=== PATIENT | female | born 1950 | race Caucasian/White ===

== ENCOUNTER → 2016-09-24 | Outpatient (CLI) | payer OTHER ==
[~2016-09-24] MED LIST: ASPI-390 PO; ASPI81TA28 PO; DICY10CA12 PO; DORZ1SOL6 OPB; FLUO20CA36 PO; HYDR-5688 PO; PANT40TA2 PO; PREG1CAP70 PO; SIMV10TA5 PO
--- NOTE | 2016-09-24 15:16 | MAMMOGRAPHY REPORT ---
UNILATERAL RIGHT DIGITAL DIAGNOSTIC MAMMOGRAM TOMOSYNTHESIS WITH CAD AND TARGETED RIGHT ULTRASOUND: 09/24/2016 CLINICAL HISTORY: 66-year-old woman who presented with 2-3 months of right breast pain that she desc ribes as both stopping and all in intensity. It waxes and wanes. It is mostly in the central, late ral and inferior aspect of the breast. She also reports a mild rash of the breast for which she has been treated with a topical powder. No palpable mass or nipple discharge. TECHNIQUE: Right breast tomosynthesis in addition to standard 2D mammography was performed. Current study was also evaluated with a Computer Aided Detection (CAD) system. COMPARISON: Comparison is made to exams dated: 11/15/2015 mammogram, 11/10/2014 mammogram, 11/09/2013 valerie mogram, 11/07/2012 mammogram, 10/25/2010 mammogram, and 10/24/2009 mammogram - [facility]. BREAST COMPOSITION: There are scattered areas of fibroglandular density in the right breast. FINDINGS: There are a few stable punctate benign-appearing microcalcifications in the right breast. No new suspicious mass, architectural distortion or cluster of microcalcifications is seen. Targeted ultrasound was performed in the areas of pain pointed out by the patient (throughout the la teral, retroareolar and inferior aspects of the breast) area incidental note is made of a benign ane choic simple cyst in the 9:00 right breast, 6 cm from the nipple. No other suspicious solid or cyst ic mass is seen. No definite abnormality to explain the patient's pain. IMPRESSION: ACR BI-RADS CATEGORY 2: BENIGN, TARGETED ULTRASOUND ACR BI-RADS CATEGORY 2: BENIGN Stable mammographic appearance of the right breast, without mammographic or targeted sonographic [place] dence of malignancy. No suspicious abnormality is seen throughout the lateral, retroareolar and inf erior right breast to explain the patient's pain. Therefore, clinical follow-up is recommended. Tr eatment options for mastalgia can also include: mineral supplements, evening primrose oil and NSAIDs . These results and recommendations were discussed with the patient at the time of the exam. The mando ent is also due for routine bilateral mammography in November 2016. Approximately 10% of breast cancers are not detected with mammography. A negative mammographic repor t should not delay biopsy if a clinically suggestive mass is present. Syeda Healy M.D. ay/:09/24/2016 12:02:33 Casing Grader: Jillian HARRIS)(Brittnee), [facility] letter sent: Normal 1/2 BI-RADS Code: ACR BI-RADS Category 2: Benign Ultrasound BI-RADS: ACR BI-RADS Category 2: Benign
--- NOTE | 2016-09-25 09:20 | CODING QUERY NO DIAGNOSIS ---
TREATMENT RENDERED WITHOUT A DIAGNOSIS Chuck JANG, To promote full compliance with coding requirements relating to patient care, physician participation is requested in all cases of wire inserter uncertainty. Please assist us with providing a diagnosis/symptom for the test(s) below: A diagnosis/symptom was not documented on your Order. A valid diagnosis/symptom is required to bill all insurances. Please remember that we are unable to code a diagnosis of rule out, probable, possible, questionable, or suspected. Tests that require a diagnosis: * UNILATERAL RT TOMOSYNTHESIS DIAGNOSIS: * DIAGNOSTIC MAMMO RIGHT W/ CAD DIAGNOSIS: * ULTRASOUND BREAST LIMITED DIAGNOSIS: DATE OF SERVICE: 09/24/16 Provider Signature: Date: Thank you Sam Plascencia [facility] Information Management Once completed, please kindly fax back to [phone] For questions please call [phone]
== END | disposition home or self-care (01) ==
LOC: C.MAMM 10:23
PROVIDERS: ATTEND Physician Assistant
DX: N64.4 Mastodynia (principal)

== ENCOUNTER → 2016-11-16 | Outpatient (CLI) | payer OTHER ==
--- NOTE | 2016-11-19 13:13 | MAMMOGRAPHY REPORT ---
BILATERAL DIGITAL SCREENING MAMMOGRAM TOMOSYNTHESIS WITH CAD: 11/16/2016 CLINICAL HISTORY: Routine screening. Patient has no complaints. TECHNIQUE: Breast tomosynthesis in addition to standard 2D mammography was performed. Current study was also evaluated with a Computer Aided Detection (CAD) system. COMPARISON: Comparison is made to exams dated: 09/24/2016 ultrasound, 09/24/2016 mammogram, 11/15/2015 m ammogram, 11/10/2014 mammogram, 11/09/2013 mammogram, and 11/07/2012 mammogram - [facility]. BREAST COMPOSITION: There are scattered areas of fibroglandular density in both breasts. FINDINGS: No suspicious masses, calcifications, or areas of architectural distortion are noted in ei ther breast. There has been no significant interval change compared to prior exams. Scattered bilater al benign-appearing calcifications are not significantly changed. IMPRESSION: ACR BI-RADS CATEGORY 2: BENIGN There is no mammographic evidence of malignancy. A 1 year screening mammogram is recommended. The pa tient will receive written notification of the results. Approximately 10% of breast cancers are not detected with mammography. A negative mammographic report should not delay biopsy if a clinically suggestive mass is present. Amanda Galvan M.D. ah/:11/17/2016 10:08:22 Biostatistics Teacher: Nadege WILEY(Theresa)(M), [facility] letter sent: Normal 1/2 BI-RADS Code: ACR BI-RADS Category 2: Benign
== END | disposition home or self-care (01) ==
LOC: C.MAMM 14:24
PROVIDERS: ATTEND Family Medicine
DX: Z12.31 Encounter for screening mammogram for malignant neoplasm of breast (principal)

== ENCOUNTER 2017-01-28 16:47 | Emergency (ER) | payer OTHER ==
[~2017-01-28] VITALS: Ht 157.5 cm; Wt 109.3 kg
[~2017-01-28 16:47] MED LIST changes: -HYDR-5688 PO; -PANT40TA2 PO; +PRT/40 PO
[2017-01-28 16:54] VITALS: TEMP 36.8; Ht 157.5 cm; Wt 109.3 kg
--- NOTE | 2017-01-28 19:20 | DIAGNOSTIC IMAGING REPORT ---
RIGHT SHOULDER 3 VIEWS HISTORY: right shoulder pain, atraumatic Right COMPARISON: None. FINDINGS: There is no fracture or dislocation. Soft tissues are unremarkable. No radiopaque foreign bodies. The right clavicle is intact. Mild AC joint arthrosis. Small focus of calcification within the distal supraspinatus tendon. IMPRESSION: Mild degenerative changes at the AC joint. No fracture or dislocation within the right shoulder. Supraspinatus calcific tendinitis. Electronically signed by: Coleman Vázquez M.D. 01/28/2017 7:19 PM Dictated Date/Time: 01/28/2017 7:17 PM
--- NOTE | 2017-01-28 19:23 | DIAGNOSTIC IMAGING REPORT ---
CERVICAL SPINE 5 VIEWS HISTORY: right shoulder and neck pain COMPARISON: None. FINDINGS: The cervical spine is visualized from C1 through the superior endplate of T1. There is no fracture. No subluxation. Moderate disc space narrowing at C4-C5 and C5-C6 with small endplate osteophytes. Moderate facet osteoarthritis throughout the majority cervical spine. This results in mild to moderate neural foraminal narrowing seen from C3 through C6 bilaterally. Prevertebral soft tissues and the atlantodens interval are intact. Straightening of the mid cervical spine. IMPRESSION: Moderate degenerative changes at the C4-C5 and C5-C6 levels. No fracture or subluxation. Electronically signed by: Coleman Vázquez M.D. 01/28/2017 7:22 PM Dictated Date/Time: 01/28/2017 7:19 PM
[2017-01-28] MEDS ORDERED: HYDROCODONE/ACETAMOPHEN 5/325MG TAB PO STA (19:30)
[2017-01-28] MEDS ORDERED: NORCO 5/325MG HOME PACK PO ONE (20:15)
--- NOTE | 2017-01-28 20:16 | EMERGENCY ROOM VISIT NOTE ---
ED Visit Note First contact with patient: 17:34 The patient was seen and examined with Flor Brunson PA-C. I agree with the history, physical and findings. Please see the note for disposition and details.
[2017-01-28] MEDS ORDERED: HYDR-5688 PO (20:18)
--- NOTE | 2017-01-28 20:19 | EMERGENCY ROOM VISIT NOTE ---
History First contact with patient: 17:34 Chief Complaint: SHOULDER PAIN Stated Complaint: R SHOULDER PAIN History of Present Illness The patient is a 67 year old female who presents to the Emergency Room with complaints of right shoulder pain. The patient states that she has had right shoulder pain which began yesterday. The pain came on gradually since yesterday morning when she woke up. The pain radiates from her neck down her right shoulder and into the top of her arm. The pain has been intermittent, but today became constant and more severe. She rates her discomfort a 10/10. She has used an ice pack and taken naproxen without relief. The pain is worse when she lifts her arm. She denies any numbness or weakness arm. She denies any chest pain or shortness of breath. She denies any history of neck or shoulder problems. Review of Systems A complete 10 point review of systems was reviewed with the patient with pertinent positives and negatives as per history of present illness. All else were negative. Past Medical/Surgical History Surgical Problems: (1) Hx of cholecystectomy (2) Normal colonoscopy Family History No significant family history Social History Smoking Status: Never Smoker Alcohol Use: none Drug Use: none Marital Status: single Housing Status: lives with family Occupation Status: retired Current/Historical Medications Scheduled Aspirin (Aspirin Ec), 81 MG PO DAILY Prswzdu-Xiionhypupjvj-Oegapzvr (Excedrin Migraine), 2 TAB PO DAILY Dicyclomine Hcl (Dicyclomine Hcl), 10 MG PO DAILY Dorzolamide Hcl-Timolol Maleat (Cosopt Oph), 1 DROPS OPB BID Fluoxetine HCl (Fluoxetine HCl), 20 MG PO QAM Pantoprazole (Pantoprazole Sodium), 40 MG PO DAILY Pregabalin (Lyrica), 300 MG PO BID Simvastatin (Zocor), 1 TAB PO HS Scheduled PRN Hydrocodone/Acetaminophen 5MG/325MG (Bristol 5MG/325MG), 1-2 TABLET PO Q4H PRN for Pain Allergies Coded Allergies: Naproxen (Verified Allergy, Unknown, GI SYMPTOMS, 01/25/16) Sulfa Antibiotics (Verified Allergy, Unknown, RASH, 01/25/16) Physical Exam Vital Signs Date Time Temp Pulse Resp B/P (MAP) Pulse Ox O2 Delivery O2 Flow Rate FiO2 01/28/17 20:56 70 18 128/86 95 01/28/17 20:45 70 18 128/86 95 Room Air 01/28/17 18:35 70 18 148/70 95 Room Air 01/28/17 16:54 36.8 81 18 186/101 96 Room Air Physical Exam VITALS: Vitals are noted on the nurse's note and reviewed by myself. Vital signs stable. GENERAL: This is a 67-year-old female, in no acute distress, nondiaphoretic, well-developed well-nourished. HEART: Regular rate and rhythm without murmurs gallops or rubs. LUNGS: Clear to auscultation bilaterally without wheezes, rales or rhonchi. MUSCULOSKELETAL: No obvious deformities. There is vague tenderness to palpation in the right cervical paraspinous muscles,right trapezius muscle, and right anterior shoulder. Decreased range of motion of the right shoulder secondary to discomfort. NEURO: Patient was alert and oriented to person place and time. Normal sensation to light and sharp touch. Medical Decision & Procedures ER Provider Diagnostic Interpretation: CERVICAL SPINE 5 VIEWS FINDINGS: The cervical spine is visualized from C1 through the superior endplate of T1. There is no fracture. No subluxation. Moderate disc space narrowing at C4-C5 and C5-C6 with small endplate osteophytes. Moderate facet osteoarthritis throughout the majority cervical spine. This results in mild to moderate neural foraminal narrowing seen from C3 through C6 bilaterally. Prevertebral soft tissues and the atlantodens interval are intact. Straightening of the mid cervical spine. IMPRESSION: Moderate degenerative changes at the C4-C5 and C5-C6 levels. No fracture or subluxation. RIGHT SHOULDER 3 VIEWS FINDINGS: There is no fracture or dislocation. Soft tissues are unremarkable. No radiopaque foreign bodies. The right clavicle is intact. Mild AC joint arthrosis. Small focus of calcification within the distal supraspinatus tendon. IMPRESSION: Mild degenerative changes at the AC joint. No fracture or dislocation within the right shoulder. Supraspinatus calcific tendinitis. Laboratory Results Test 01/28/17 18:39 Bedside Troponin I < 0.030 ng/ml (0-0.045) Medications Administered Medications (Trade) Dose Ordered Sig/Jan Route Start Time Stop Time Status Last Admin Dose Admin Acetaminophen/ Hydrocodone Bitart (Bristol 5/325 Tab) 1 tab NOW STAT PO 01/28/17 19:30 8/21/17 19:31 DC 01/28/17 19:41 1 TAB Acetaminophen/ Hydrocodone Bitart (Bristol 5/325mg Home Pack) 1 homepack UD ONCE PO 01/28/17 20:15 01/28/17 20:17 DC 01/28/17 20:46 1 HOMEPACK ECG Indication: back/shoulder pain Rate (beats per minute): 69 Rhythm: normal sinus Findings: no acute ischemic change, no ectopy Change: no significant change Medical Decision Differential diagnosis includes cervical radiculopathy, calcific tendinitis, rotator cuff tendinitis, cardiac disease, referred pain, among others. The patient is a 67-year-old female who presents today complaining of right shoulder pain. X-rays showed calcific tendinitis of the right shoulder. Troponin was negative. EKG showed no acute ischemic changes. Patient was treated with Bristol here with significant relief. She'll be given a prescription of Bristol and will follow-up with her orthopedist. She was placed in a sling for comfort. Conservative measures were discussed. She verbalized understanding of my assessment and treatment plan was discharged home in good condition. The patient was independently evaluated by Dr. Sinclair, ED attending physician, who agreed with my assessment and treatment plan. Medication reconciliation: I attest that I have personally reviewed the patient 's current medication list. Blood Pressure Screening: Patient was found to have a slightly elevated blood pressure due to circumstances. I do not believe that the patient requires hypertension monitoring. [place] Drug Monitoring Program Search Results: patient reviewed within database Impression Primary Impression: Calcific tendinitis of right shoulder Departure Information Dispostion Home / Self-Care Condition GOOD Prescriptions Hydrocodone/Acetaminophen 5MG/325MG (Bristol 5MG/325MG) Tab 1-2 TABLET PO Q4H Y for Pain, #15 TAB For Initial Treatment Prov: Flor Brunson .DONNIE 01/28/17 Referrals Frantz Cuellar M.D. (PCP) Grey Robison M.D. Patient Instructions My [facility] Additional Instructions You have been treated in the Emergency Department for Shoulder Pain. You have received pain medicine in the emergency department which impairs your ability to operate a vehicle. It is illegal for you to drive after receiving these medicines. You have been prescribed Bristol to be used for pain control. This is a narcotic medication. You cannot drive or consume alcohol while on this medicine. This medicine should only be used for pain that cannot be controlled with over-the- counter pain medicines. For pain control, you can use the following lnzi-nqc-fcmpzqc medicines (if >12 yo): - Regular strength (325mg/tab) Tylenol (acetaminophen) 2 tabs every 4-6 hours as needed. Do not exceed 12 tablets in a 24 hour period. Avoid taking more than 4 grams (4000 mg) of Tylenol per day. This includes any other sources of acetaminophen you may take on a regular basis. - Regular strength (200 mg/tab) Advil (ibuprofen) 1-2 tabs every 4-6 hours as needed. Do not exceed a dose of 3200 mg per day. If this is a recent injury (<24 hrs), ice can be applied to the area of pain for the first 3 days to help decrease pain and inflammation. Follow-up with Dr. Robison. Call for appointment. Wear the sling as needed for pain. Return to the Emergency Department if your current symptoms worsen despite treatment course outlined above, or if you develop any of the following symptoms : intractable pain despite aforementioned treatment course or new onset of numbness or tingling of the arm.
[2017-01-28 20:56] VITALS: BP 128/86; PULSE 70; O2SAT 95
== END 2017-01-28 20:57 | disposition home or self-care (01) ==
LOC: C.EDB 16:48 → C.EDC 20:57
DX: M75.31 Calcific tendinitis of right shoulder (principal); Z90.49 Acquired absence of other specified parts of digestive tract; Z98.890 Other specified postprocedural states; Z79.82 Long term (current) use of aspirin; Z79.899 Other long term (current) drug therapy; Z88.2 Allergy status to sulfonamides; Z88.8 Allergy status to other drugs, medicaments and biological substances

== ENCOUNTER 2017-07-12 08:16 | Inpatient (IN) | payer OTHER ==
[2017-06-14 09:27] VITALS: Ht 157.5 cm; Wt 107.6 kg
--- NOTE | 2017-06-14 09:57 | PAT Medication Instructions ---
Service Date Jun 14, 2017. Current Home Medication List Acetaminophen (Tylenol), 1,000 MG PO Q12 Aspirin (Aspirin Ec), 81 MG PO QAM Nbljigr-Qgbfbdyupkdws-Hsqlmqyp (Excedrin Migraine), 2 TAB PO DAILY Cyclobenzaprine Hcl (Flexeril), 10 MG PO TID PRN for Muscle Spasms Dicyclomine Hcl (Dicyclomine Hcl), 10 MG PO BID Dorzolamide Hcl-Timolol Maleat (Cosopt Oph), 1 DROPS OPB BID Fluoxetine HCl (Fluoxetine HCl), 40 MG PO QAM Fluticasone Propionate (Nasal) (Flonase Allergy Relief), 1 SPRAY BRIANA DAILY PRN for PRN Ondansetron Hcl (Zofran), 8 MG PO UD PRN for Nausea Pantoprazole (Pantoprazole Sodium), 40 MG PO QAM Simethicone (Simethicone), 1 CAP PO BID PRN for GAS Simvastatin (Zocor), 1 TAB PO HS Medication Instructions For Your Scheduled Surgery - Hold the following medications the morning of surgery: Simethicone (Simethicone), 1 CAP PO BID PRN for GAS Dicyclomine Hcl (Dicyclomine Hcl), 10 MG PO BID Cyclobenzaprine Hcl (Flexeril), 10 MG PO TID PRN for Muscle Spasms - Take the following medications the morning of surgery with a sip of water OTHERWISE NOTHING TO EAT OR DRINK AFTER MIDNIGHT: Aspirin (Aspirin Ec), 81 MG PO QAM Pantoprazole (Pantoprazole Sodium), 40 MG PO QAM Fluticasone Propionate (Nasal) (Flonase Allergy Relief), 1 SPRAY BRIANA DAILY PRN for PRN Ondansetron Hcl (Zofran), 8 MG PO UD PRN for Nausea Fluoxetine HCl (Fluoxetine HCl), 40 MG PO QAM Acetaminophen (Tylenol), 1,000 MG PO Q12 (may take if needed up to 4 hours prior to surgery) Dorzolamide Hcl-Timolol Maleat (Cosopt Oph), 1 DROPS OPB BID Gabapentin - Take the following medications as scheduled the night before surgery: Simvastatin (Zocor), 1 TAB PO HS Simethicone (Simethicone), 1 CAP PO BID PRN for GAS Fluticasone Propionate (Nasal) (Flonase Allergy Relief), 1 SPRAY BRIANA DAILY PRN for PRN Ondansetron Hcl (Zofran), 8 MG PO UD PRN for Nausea Acetaminophen (Tylenol), 1,000 MG PO Q12 Dicyclomine Hcl (Dicyclomine Hcl), 10 MG PO BID Dorzolamide Hcl-Timolol Maleat (Cosopt Oph), 1 DROPS OPB BID Cyclobenzaprine Hcl (Flexeril), 10 MG PO TID PRN for Muscle Spasms Gabapentin Propanolol If you have any questions please call us at [phone] or [phone] or [phone]
[2017-06-14 10:27] LABS: BASO % 0.5 %; BASO ABS # 0.03 K/uL (0-0.2); EOS % 1.1 %; EOS ABS # 0.07 K/uL (0-0.5); HEMATOCRIT 41.5 % (37-47); HEMOGLOBIN 13.7 g/dL (12.0-16.0); IG# 0.02 K/uL (0.00-0.02); LYMPH ABS # 2.11 K/uL (1.2-3.4); MEAN CELL VOLUME 89.6 fL (80-100); MEAN CORPUSCULAR HEMOGLOBIN 29.6 pg (25-34); MEAN PLATELET VOLUME 10.7 fL (7.4-10.4); MONO % 10.5 %; MONO ABS # 0.69 K/uL (0.11-0.59); NEUT % 55.6 %; NEUT ABS # 3.67 K/uL (1.4-6.5); PLATELET COUNT 262 K/uL (130-400); RED CELL DISTRIBUTION WIDTH CV 13.5 % (11.5-14.5); RED CELL DISTRIBUTION WIDTH SD 44.5 fL (36.4-46.3); WHITE BLOOD COUNT 6.59 K/uL (4.8-10.8)
[2017-06-14 10:37] LABS: PTT PATIENT 27.7 SECONDS (21.0-31.0)
--- NOTE | 2017-06-14 10:48 | DIAGNOSTIC IMAGING REPORT ---
CHEST 2 VIEWS ROUTINE CLINICAL HISTORY: 67 years-old Female presenting with preoperative assessment. TECHNIQUE: PA and lateral views of the chest were obtained. COMPARISON: 06/17/2015. FINDINGS: Cardiomediastinal silhouette normal. Lungs and pleural spaces clear. Degenerative changes of the thoracic spine. Cholecystectomy clips noted. IMPRESSION: 1. No acute cardiopulmonary disease. Electronically signed by: Ryley Starks M.D. 06/14/2017 10:47 AM Dictated Date/Time: 06/14/2017 10:46 AM
[2017-06-14 12:21] LABS: CALCIUM 8.9 mg/dl (8.5-10.1); CREATININE 0.81 mg/dl (0.60-1.20); POTASSIUM 4.1 mmol/L (3.5-5.1)
--- NOTE | 2017-07-06 10:52 | HISTORY & PHYSICAL EXAMINATION ---
DATE OF ADMISSION: 07/12/2017 CHIEF COMPLAINT: Bilateral knee pain and discomfort, right side greater than left. HISTORY OF PRESENT ILLNESS: This is a 67-year-old female who presents for surgical treatment of her right knee. He has got a long history of knee pain and discomfort, treated by my partner, Dr. Ragland. She had been through extensive treatment including oral medicines, steroid shots, and viscosupplementation. The viscosupplementation did not help at all. The steroid shots do help temporarily, but very fleeting. Pain is mostly in the lateral side of her knee. It is increased with weightbearing. She does have some back and sciatica type pain as well. She would like to proceed with knee replacement surgery. PAST MEDICAL HISTORY: Significant for, 1. Obesity with a BMI of 43.4. 2. Anxiety/depression. 3. Fibromyalgia. 4. Migraine headaches. 5. Arthritis. 6. Gastroesophageal reflux disease. 7. Hiatal hernia. PAST SURGICAL HISTORY: Include: 1. Cholecystectomy. 2. Hysterectomy. ALLERGIES: 1. NAPROSYN, WHICH CAUSES GI DISCOMFORT. 2. SULFA. CURRENT MEDICINES: 1. Celebrex 200. 2. Ranitidine 300 mg at bedtime. 3. Zocor 40 mg at bedtime. 4. Cyclobenzaprine 10 mg at bedtime. 5. Simethicone 80 mg 1-2 tablets by mouth 4 times daily as needed for gas. 6. Lyrica 150 mg twice a day. 7. Dicyclomine 10 mg before breakfast and dinner. 8. Cosopt eyedrops 1 drop in each eye twice a day. 9. Fluoxetine 20 mg twice a day. 10. Pantoprazole 40 mg twice a day. 11. Ondansetron twice a day. 12. Oxygen by nasal cannula. 13. Fluticasone nasal spray. 14. Excedrin. 15. Aspirin 81 mg a day. 16. Tylenol. SOCIAL HISTORY: A 67-year-old white female patient from [place]. She is . She does not drink. FAMILY HISTORY: Significant for lung cancer. REVIEW OF SYSTEMS: Negative for diabetes. Denies any chest pain. No history of DVT or PE. No known bleeding problems. PHYSICAL EXAMINATION: GENERAL: Reveals a pleasant middle-aged female. She looks to be in reasonably good health. HEENT: Benign. NECK: Supple with no lymphadenopathy. LUNGS: Clear to auscultation. HEART: Has a regular rate and rhythm. ABDOMEN: Soft, nontender, and nondistended. EXTREMITIES: Grossly neurovascularly intact except as follows. Examination of both knees reveals that the patient walks with a slight bit of a limp. Examination of the right knee reveals a valgus alignment. She has got a moderate soft tissue envelope. Small knee effusion. Range of motion is 0-125. No instability. No pain with hip motion. X-RAYS: X-rays of the right knee reveal advanced lateral compartment DJD. She got near complete loss of her lateral joint space. She does have cystic changes of the lateral femoral condyle consistent with some AVN. She has got some moderate medial compartment arthritis. Hip x-rays look pretty normal. ASSESSMENT: A 67-year-old female with multiple underlying medical issues including fibromyalgia and obesity with bilateral knee pain and discomfort, right side greater than left with failing conservative treatment. She has been through extensive conservative care and would like to really have her right knee replaced. PLAN: We talked about treatment options. We are going to proceed with right knee replacement. The risks and benefits of the right knee replacement were explained to the patient, including but not limited to DVT, PE, , infection, neurological injury, vascular injury, bleeding problem, pain, limited range of motion, stiffness, failure to relieve symptoms, incomplete relief of symptoms, need for further surgery in the future, fracture, leg length inequality, nerve palsy, persistent pain, etc. The patient understands and desire to proceed. Informed consent was obtained. I did caution her that with her fibromyalgia, certainly the results of knee replacement surgery are less predictable as far as how much it is going to help. She is completely understanding of this and would like to proceed. As far as discharge plans, she is planning to be discharged to home using [facility]. We will likely use some Toradol postoperatively to help her pain control. We will switch her then to Celebrex. She is planning to be discharged home using [facility] home health [facility].
[2017-07-12] VITALS (8 sets, daily range): BP systolic 125–165; BP diastolic 70–94; PULSE 71–79; TEMP 36.3–36.9; O2SAT 92–97
[~2017-07-12] VITALS: Ht 157.5 cm; Wt 107.6 kg
[~2017-07-12 08:16] MED LIST changes: +ACET-1256 PO; +ACETAMINOPHEN 500 MG TAB PO SCH; -ASPI-390 PO; +BUPIVACAINE 0.25% 30 ML VIAL ONE; +BUPIVACAINE 0.5 % 5 MG/1 ML PF 10ML VIAL ONE; +BUPIVACAINE LIPOSOME 266 MG, BUPIVACAINE/EPINEPHRINE INJ 50 ML, SODIUM CHLORIDE 0.9% PF... INFIL SCH; +CEFAZOLIN 2000MG IV PUSH 10 ML IV SCH; +CYCL10TA6 PO; +FAMOTIDINE 20 MG TAB PO SCH; +FLUT0.15 NAE; +GABA1CAP PO; +GABAPENTIN 300 MG CAP PO SCH; +LACTATED RINGER'S 1000ML 1,000 ML IV SCH; +LACTATED RINGER'S 1000ML 500 ML IV SCH; +MAGN400C2 PO; +METOCLOPRAMIDE HCL 10 MG TAB PO SCH; +ONDA8TAB6 PO; +PANT40TA2 PO; -PREG1CAP70 PO; +PROP80CA PO; -PRT/40 PO; +RIBO1TAB4 PO; +SCOPOLAMINE 1.5 MG TDSY TD SCH; +SIME1CAP28 PO; +TRANEXAMIC ACID INJ 1,000 MG in SYRINGE 0 ML IV SCH
--- NOTE | 2017-07-12 08:50 | History & Physical Bridge Note ---
H&P Re-Evaluation Bridge Note: I have examined the patient, reviewed the History & Physical and in the interval since the performance of the History & Physical I have noted the following changes of clinical significance: No changes noted
[2017-07-12] MEDS ORDERED: PROPOFOL IV EMULSION 10 MG/ML 20 ML VIAL IV ONE (09:44)
[2017-07-12] MEDS ORDERED: LIDOCAINE HCL 2% 2 ML VIAL (20MG/ML) ONE (09:48)
[2017-07-12] MEDS ORDERED: MIDAZOLAM HCL 1 MG/ML 2ML VIAL ONE (09:48)
[2017-07-12] MEDS ORDERED: FENTANYL CITRATE INJ 50 MCG/1 ML 2 ML VIAL ONE (09:49)
[2017-07-12] MEDS ORDERED: SODIUM CHLORIDE 0.9% PF 50 ML VIAL ONE (11:09)
[2017-07-12] MEDS ORDERED: BUPIVACAINE/EPINEPHRINE 0.25% 1:200,000 30 ML VIAL ONE (11:09)
[2017-07-12] MEDS ORDERED: BACITRACIN 50000 UNIT VIAL ONE (11:10)
[2017-07-12] MEDS ORDERED: BUPIVACAINE LIPOSOME 1/3% 266 MG/20 ML VIAL INFIL ONE (11:10)
[2017-07-12] MEDS ORDERED: ONDANSETRON INJ 2 MG/ML 2 ML VIAL ONE (11:39)
[2017-07-12] MEDS ORDERED: DEXAMETHASONE SOD INJ 4 MG/ML VIAL ONE (11:39)
--- NOTE | 2017-07-12 13:03 | [facility] Post Operative Brief Note ---
Immediate Operative Summary Operative Date Jul 12, 2017. Pre-Operative Diagnosis Right Knee Degenerative Joint Disease Post-Operative Diagnosis Same as preop Procedure(s) Performed Right Total Knee Arthroplasty Surgeon Dr. Robison Cylinder Checker Surgeon(s) Almas Bolden PA-C Estimated Blood Loss 50 ml Findings Consistent with Post-Op Diagnosis Fluids (cc crystalloids) 1400 cc Specimens A. Right Knee Bone and Tissue Drains None Anesthesia Type MAC Spinal Regional Complication(s) none Disposition Accompanied Pt To Recover: no Disposition: Recovery Room / PACU
[2017-07-12] MEDS ORDERED: BISACODYL 10 MG SUPP PR PRN (13:15)
[2017-07-12] MEDS ORDERED: METOCLOPRAMIDE HCL INJ 5 MG/ML 2 ML VIAL IV PRN (13:15)
[2017-07-12] MEDS ORDERED: CEFAZOLIN IV 2,000 MG in DEXTROSE 5% 50ML 50 ML IV SCH (13:15)
[2017-07-12] MEDS ORDERED: CYCLOBENZAPRINE HCL 10 MG TAB PO PRN (13:15)
[2017-07-12] MEDS ORDERED: FLUTICASONE PROPIONATE NA SPR 16 GM BTL NAE PRN (13:15)
[2017-07-12] MEDS ORDERED: ZOLPIDEM TARTRATE 5 MG TAB PO PRN (13:15)
[2017-07-12] MEDS ORDERED: ALUMINUM/MAGNESIUM/SIMETH (MAALOX MAX) 30 ML UDC PO PRN (13:15)
[2017-07-12] MEDS ORDERED: SIMETHICONE 80 MG CHEW PO PRN (13:15)
[2017-07-12] MEDS ORDERED: HYDROmorphone INJ 0.5 MG/0.5 ML SYR IV PRN (13:15)
[2017-07-12] MEDS ORDERED: ONDANSETRON 8 MG TAB PO PRN (13:15)
[2017-07-12] MEDS ORDERED: MAGNESIUM HYDROXIDE SUSP 30 ML UDC PO PRN (13:15)
[2017-07-12] MEDS ORDERED: ONDANSETRON INJ 2 MG/ML 2 ML VIAL IV PRN (13:15)
--- NOTE | 2017-07-12 13:32 | Anesthesiology Progress Note ---
Anesthesia Post Op Note Date & Time Jul 12, 2017 at 13:32 Vital Signs Pain Intensity: 0 Vital Signs Past 12 Hours Date Time Temp Pulse Resp B/P (MAP) Pulse Ox O2 Delivery O2 Flow Rate FiO2 07/12/17 13:25 67 19 141/64 97 Nasal Cannula 2 07/12/17 13:15 69 14 140/71 100 Oxymask 10 07/12/17 13:09 37.1 73 20 154/82 100 Oxymask 10 07/12/17 08:48 36.9 79 20 165/88 96 Room Air Notes Mental Status: alert / awake / arousable, participated in evaluation Pt Amnestic to Procedure: Yes Nausea / Vomiting: adequately controlled Pain: adequately controlled Airway Patency, RR, SpO2: stable & adequate BP & HR: stable & adequate Hydration State: stable & adequate Neuraxial Anesthesia: was administered, sensory block is resolving Anesthetic Complications: no major complications apparent
--- NOTE | 2017-07-12 13:37 | DIAGNOSTIC IMAGING REPORT ---
RIGHT KNEE 2 VIEWS History: Right total knee arthroplasty. Degenerative arthritis. Postop. FINDINGS: The patient is status post a right total knee arthroplasty. The hardware is intact. No fracture or dislocation. Skin warren are in place. IMPRESSION: Right total knee arthroplasty. No evidence for hardware complication. Electronically signed by: Coleman Vázquez M.D. 07/12/2017 1:36 PM Dictated Date/Time: 07/12/2017 1:35 PM
[2017-07-12] MEDS ORDERED: EpHEDrine SULFATE INJ 50 MG/ML AMP IV PRN (13:45)
[2017-07-12] MEDS ORDERED: ATROPINE SULFATE 0.1 MG/ML 5ML SYR IV PRN (13:45)
--- NOTE | 2017-07-12 14:09 | OPERATIVE REPORT ---
DATE OF OPERATION: 07/12/2017 SURGEON: Grey Robison MD RICE DRIER: SUHAIL Mcgee PREOPERATIVE DIAGNOSIS: Right knee degenerative joint disease. POSTOPERATIVE DIAGNOSIS: Same. PROCEDURE PERFORMED: Cemented right posterior stabilized total knee arthroplasty. COMPLICATIONS: None. ESTIMATED BLOOD LOSS: 50 mL FLUID REPLACEMENT: 1400 mL crystalloid fluid replacement. TOURNIQUET TIME: 54 minutes at a combination of 300 and 350 mmHg. ANESTHESIA: Spinal with adductor canal block. DRAINS: None. SPECIMENS: Right knee sent for pathology. OPERATIVE INDICATIONS: The patient is a 67-year-old female who has had a fairly long history of bilateral knee pain and discomfort, followed by my partner Dr. Ragland for quite some time. This became less responsive to conservative care. She elected to proceed with total knee arthroplasty. OPERATIVE FINDINGS: Operative findings revealed some ojtpbial-jv-bjxiht knee DJD. She did have grade 4 changes of the lateral femoral condyle and lateral tibial plateau. She had fairly diffuse grade 3 changes elsewhere. Moderate size joint effusion. She had a valgus alignment to her knee. OPERATIVE IMPLANTS: Operative implants consisted of: 1. Biomet Vanguard size 62.5 right posterior stabilized femoral component. 2. Biomet size 63 tibial tray. 3. A 10-mm posterior stabilized polyethylene insert. 4. A 28 x 8 all poly patella. OPERATIVE PROCEDURE: The patient taken to the operating room, identified and placed on the operating table in supine position. All contact areas were appropriately padded. IV antibiotics were provided by anesthesia team. A spinal anesthetic and adductor canal block had been provided in the holding area. Alfaro catheter was placed in sterile fashion. The right lower extremity was then prepped and draped in usual sterile fashion. The right leg was elevated and exsanguinated with an Esmarch and tourniquet was placed at 300 mmHg. An anterior approach to the right knee was then performed through a longitudinal incision centered over the patella. Sharp dissection was carried out through the subcutaneous tissues down to the extensor mechanism. A medial parapatellar arthrotomy incision was made. Some subperiosteal dissection was carried out medially. The fat pad was resected from beneath the patellar tendon. The lateral patellofemoral ligament was released. The patella was everted and knee was flexed. The osteophytes were taken off the distal femur. The ACL and PCL were then released from the distal femur and the tibia subluxated anteriorly. The external tibial alignment jig was then placed in the anterior face of the tibia and adjusted 14 mm medially. Proximal tibial cut was made to remove about 2-3 mm of bone from the medial side. The tibia was then sized to a size 63. Attention was then drawn to the femur. The distal femur was entered with a sharp drill. Intramedullary canal was suctioned. A right 5-degree valgus cutting guide was placed. Distal femoral cutting block was pinned in place. Distal femoral cut was made to take an additional 3 mm of bone off the distal femur. The knee was then flexed. The femur was then sized to a size 62.5. The AP cutting block was pinned parallel to the epicondylar axis, which was 3 degrees of external rotation. The anterior cut, anterior chamfer, posterior cut, posterior chamfer cuts were made. Box cutting guide was placed and adjusted slightly lateral and the box cut was made. The knee was flexed. The remnants of the medial and lateral menisci were excised. The osteophytes were taken off the posterior aspect of the femur. At this point, the patient was seen to be having a little bit of venous tourniquet effect, so we did increase the tourniquet to 350 mmHg. The wound was irrigated. The trial femoral component was placed. Tibial tray was pinned in maximum external rotation and drill and stem punch were used to create defect in proximal tibia for the tibial tray. We then trialed the knee and the 10-mm insert fit most appropriately. Attention was then drawn to the patella. The patella was cleaned of all soft tissues. Patella was quite thin and measured about 17 mm in thickness and it was cut down to 12. It was sized to a size 28 patella. Lug holes were drilled for the 28 patella. The lateral osteophyte was removed. Patella button was placed. Knee was taken through range of motion and the patella tracked nicely with no thumbs test. Attention was then drawn toward placement of the permanent components. All trial components were removed. A bone plug was placed in the distal femur to limit blood loss. A double batch of Palacos G cement was mixed. A right size 62.5 posterior stabilized femoral component, size 63 tibial tray, a 10-mm posterior stabilized polyethylene insert, and 28 x 8 all poly patella were then cemented in place. Knee was brought out into full extension until cement hardened. A final cement check was then performed. The pericapsular tissues were injected with a total of 100 mL of a combination of 20 mL of Exparel, 30 mL of normal saline, 50 mL of 0.25% Marcaine with epinephrine. The patient did receive 1 gram of tranexamic acid. The tourniquet was then let down for the final tourniquet time of 54 minutes. Hemostasis was assured with use of electrocautery. The wound was once again irrigated. The extensor mechanism was then closed with a combination of #1 PDS suture and then #1 Vicryl suture in a [id number] fashion. Extensor mechanism was checked and found to be intact. The subcutaneous tissues were then closed with 2-0 Dexon suture in a buried interrupted fashion. Skin was closed skin warren. Leg was then cleaned and dried and a sterile dressing of Xeroform, 4 x 4's, sterile cast padding and Merrill bandage were applied. The patient was then transferred to the recovery room in a stable condition. The patient tolerated the procedure well without any complications. All needle and sponge counts were correct at the end of the operation. I attest to the content of the Intraoperative Record and any orders documented therein. Any exception s are noted below.
[2017-07-12] MEDS: TRAMADOL HCL 50 MG TAB PO PRN (14:43)
[2017-07-12] MEDS: D5W AND 1/2NSS + 20MEQ KCL 1,000 ML IV SCH ×2 (15:13→23:06)
[2017-07-12] MEDS: KETOROLAC TROMETHAMINE 30 MG/ML VIAL IV. SCH ×2 (15:13→19:52)
[2017-07-12] MEDS: CHECK SCOPOLAMINE PATCH PLACEMENT SCH ×2 (15:35→23:58)
--- NOTE | 2017-07-12 16:13 | PROGRESS NOTE ---
DATE: 07/12/2017 SUBJECTIVE: A 67-year-old female postop from a right knee replacement. She is doing well. She rates her pain at 3-4 at worst. No chest pain or shortness of breath. Not feeling dizzy or lightheaded. OBJECTIVE: VITAL SIGNS: Temperature 36.6. Vital signs stable. Some mild hypertension. GENERAL: Physical examination reveals a pleasant elderly female. She is sitting up in bed and looks completely comfortable. LUNGS: Clear to auscultation. HEART: Has a regular rate and rhythm. ABDOMEN: Soft, nontender, and nondistended. EXTREMITIES: Grossly neurovascularly intact except as follows. Examination of the right lower extremity reveals the leg to be well aligned. Dressing is clean, dry and intact. She can dorsiflex and plantarflex her foot appropriately. She is neurologically intact. X-RAYS: X-rays of the right knee from recovery room were reviewed. It shows a right cemented posterior right total knee arthroplasty. Components looked to be in good position. No signs of problems. ASSESSMENT: A 67-year-old female postop from a right knee replacement, doing pretty well. Pain is controlled. She is neurologically intact. PLAN: 1. DVT prophylaxis including thigh-high TEDs, SCDs, and aspirin twice a day. 2. PT/OT. Weightbear as tolerated. Right total knee protocol. 3. Pain control. Doing pretty well with current pain regimen. 4. IV antibiotics x24 hours. 5. Disposition: She is going to be discharged to home likely with some home health once adequately recovered.
[2017-07-12] MEDS: GABAPENTIN 100 MG CAP PO SCH ×2 (16:32→21:17)
[2017-07-12] MEDS: ACETAMINOPHEN 500 MG TAB PO SCH (16:32)
[2017-07-12] MEDS: FERROUS GLUCONATE 324 MG TAB PO SCH (18:05)
[2017-07-12] MEDS ORDERED: TRANEXAMIC ACID INJ 1,000 MG in SODIUM CHLORIDE 0.9% 100ML 100 ML IV SCH (21:00)
[2017-07-12] MEDS ORDERED: MAGNESIUM OXIDE 400 MG TAB PO SCH (21:00)
[2017-07-12] MEDS: DORZOLAMIDE/TIMOLOL 22.3/6.8MG/ML 10 ML BTL OPB SCH (21:13)
[2017-07-12] MEDS: CEFAZOLIN IV 2,000 MG in SYRINGE 5 ML IV SCH (21:13)
[2017-07-12] MEDS: SENNA 8.6 MG TAB PO SCH (21:14)
[2017-07-12] MEDS: DICYCLOMINE HCL 10 MG CAP PO SCH (21:15)
[2017-07-12] MEDS: PROPRANOLOL HCL 80 MG LA CAP PO SCH (21:15)
[2017-07-12] MEDS: SIMVASTATIN 10 MG TAB PO SCH (21:16)
[2017-07-12] MEDS: ASPIRIN 325 MG ECTAB PO SCH (21:17)
[2017-07-12] MEDS: DOCUSATE SODIUM 100 MG CAP PO SCH (21:17)
[2017-07-13] MEDS: ACETAMINOPHEN 500 MG TAB PO SCH ×4 (00:08→23:37)
[2017-07-13] MEDS: KETOROLAC TROMETHAMINE 30 MG/ML VIAL IV. SCH ×4 (01:33→19:43)
[2017-07-13 04:00] VITALS: BP 132/82; PULSE 73; TEMP 36.5; O2SAT 94
[2017-07-13] MEDS: CEFAZOLIN IV 2,000 MG in SYRINGE 5 ML IV SCH (04:21)
[2017-07-13 06:12] LABS: HEMATOCRIT 35.9 % (37-47); HEMOGLOBIN 11.9 g/dL (12.0-16.0); MEAN CELL VOLUME 90.2 fL (80-100); MEAN CORPUSCULAR HEMOGLOBIN 29.9 pg (25-34); MEAN CORPUSCULAR HGB CONC 33.1 g/dl (32-36); MEAN PLATELET VOLUME 11.7 fL (7.4-10.4); PLATELET COUNT 235 K/uL (130-400); RED CELL DISTRIBUTION WIDTH CV 13.3 % (11.5-14.5); WHITE BLOOD COUNT 13.34 K/uL (4.8-10.8)
[2017-07-13] MEDS: GABAPENTIN 100 MG CAP PO SCH ×3 (06:27→21:28)
[2017-07-13 06:40] LABS: CALCIUM 8.4 mg/dl (8.5-10.1); CREATININE 0.94 mg/dl (0.60-1.20); POTASSIUM 4.4 mmol/L (3.5-5.1)
--- NOTE | 2017-07-13 07:06 | PROGRESS NOTE ---
DATE: 07/13/2017 SUBJECTIVE: A 67-year-old white female postop day 1 from right knee replacement. She is doing well. Had a good night. Pain is controlled. No chest pain or shortness of breath. Not feeling dizzy or lightheaded. OBJECTIVE: VITAL SIGNS: Temperature 36.5. Vital signs stable. GENERAL: Reveals a healthy pleasant, middle-aged female. She is lying in bed and looks comfortable. EXTREMITIES: Examination of the right leg reveals the dressing to be clean, dry and intact. Leg is well aligned. Calf is soft and supple. She can dorsiflex and plantarflex her foot appropriately. LABORATORY DATA: Hemoglobin 11.9, hematocrit 35.9. Electrolytes are pending. ASSESSMENT: A 67-year-old white female postop day 1 from a right knee replacement, doing well. Pain is controlled. She is neurologically intact. PLAN: 1. DVT prophylaxis including thigh-high TEDs, SCDs, and aspirin twice a day. 2. PT/OT. Weight bear as tolerated. Right total knee protocol. 3. Pain control. Doing well with current pain regimen. 4. Disposition: Plan to be discharged to home with some home health once adequately recovered.
[2017-07-13] MEDS: CHECK SCOPOLAMINE PATCH PLACEMENT SCH (07:33)
[2017-07-13] MEDS: FERROUS GLUCONATE 324 MG TAB PO SCH ×3 (07:42→17:59)
[2017-07-13] MEDS: DORZOLAMIDE/TIMOLOL 22.3/6.8MG/ML 10 ML BTL OPB SCH ×2 (07:42→21:25)
[2017-07-13] MEDS: DICYCLOMINE HCL 10 MG CAP PO SCH ×2 (07:43→21:27)
[2017-07-13] MEDS: DOCUSATE SODIUM 100 MG CAP PO SCH ×2 (07:43→21:27)
[2017-07-13] MEDS: FLUOXETINE HCL 20 MG CAP PO SCH (07:44)
[2017-07-13] MEDS: PANTOprazole SOD 40 MG TAB PO SCH (07:44)
[2017-07-13] MEDS: MULTIVITAMIN TAB PO SCH (07:44)
[2017-07-13] MEDS: ASPIRIN 325 MG ECTAB PO SCH ×2 (07:44→21:27)
[2017-07-13 08:41] VITALS: BP 119/77; PULSE 55; TEMP 36.7; O2SAT 91
[2017-07-13] MEDS ORDERED: PANTOprazole SOD 40 MG TAB PO SCH (09:00)
[2017-07-13] MEDS: D5W AND 1/2NSS + 20MEQ KCL 1,000 ML IV SCH (09:05)
[2017-07-13 11:52] VITALS: BP 127/73; PULSE 88; O2SAT 94
[2017-07-13] MEDS: TRAMADOL HCL 50 MG TAB PO PRN (13:13)
[2017-07-13] MEDS ORDERED: NURSING VERBAL MED ORDER ONE (13:45)
[2017-07-13 15:01] VITALS: BP 101/72; PULSE 65; TEMP 36.7; O2SAT 98
[2017-07-13] MEDS ORDERED: MAGNESIUM OXIDE 400 MG TAB PO SCH (21:00)
[2017-07-13] MEDS: PROPRANOLOL HCL 80 MG LA CAP PO SCH (21:51)
[2017-07-13] MEDS: SENNA 8.6 MG TAB PO SCH (21:51)
[2017-07-13] MEDS: SIMVASTATIN 10 MG TAB PO SCH (21:52)
[2017-07-13] MEDS ORDERED: ASPEC325 PO (22:45)
[2017-07-13] MEDS ORDERED: ACET-24 PO (22:45)
[2017-07-13] MEDS ORDERED: ULT50X PO (22:45)
--- NOTE | 2017-07-13 22:48 | Discharge Instructions ---
Discharge Instructions Date of Service Jul 13, 2017. Admission Reason for Admission: Right Knee Degenerative Joint Disease Discharge Discharge Diagnosis / Problem: Right Knee Replacement Discharge Goals Goal(s): Decrease discomfort, Improve function, Increase independence, Improve disease control, Therapeutic intervention Activity Recommendations Activity Limitations: per Instructions/Follow-up section Weightbearing Status: Right weightbearing . Instructions / Follow-Up Instructions / Follow-Up ACTIVITY RECOMMENDATIONS: Physical Therapy: * You will go to physical therapy three times each week for four to six weeks after your surgery in order to regain your knee range of motion and to retrain your knee to work properly. * It is just as important to make sure you are getting your knee perfectly straight as it is to regain your knee bend. * Taking a pain pill an hour before therapy can help you have a more productive and comfortable therapy session. Home Exercise: * You were shown a series of exercises (heel props, heel slides, etc.) in the hospital. Do these exercises three to four times each day including the exercises you were shown in physical therapy. Walking: * Get up and walk several times each day. For the first four weeks, try not to stand or walk for more than one hour at a time. If you do stand or walk for more than one hour, you will not hurt anything, but your knee and leg will likely swell. * As you feel comfortable, you may change from the walker or crutches to a cane and then to independent walking. MEDICATIONS: New Medicine: * You will likely be taking one or more of these medications: 1. Tramadol - A quick and shorter-acting pain medication. Take one to two tablets every four to six hours to lessen your pain. 2. Aspirin - Thins your blood to lessen the chance of forming a blood clot. * The most common side effects of pain medicine and iron are nausea and constipation. If nausea or constipation is too much of a problem or if you have any questions about your new medicines or doses, call [facility] at . We will try to help you manage these issues. VERY IMPORTANT TO READ AND REVIEW" Pain: * The immediate post-operative period after knee replacement surgery is often quite painful. * You are given a prescription for pain medicine. You should take it, as directed, when you need it, especially before physical therapy and before going to bed. Pain that interferes with sleep is very common and can last several months. * You will likely need pain medicine for the first four to six weeks. It will not stop all of the pain. The pain will lessen and as you feel better, you may change to milder pain medicine such as Tylenol. * The most common side effects of pain medicine are nausea and constipation, so don't take more than you need. SPECIAL CARE INSTRUCTIONS: TEDs/Elastic Stockings: * The white elastic stockings help limit swelling and prevent blood clots from forming in your legs. The more you wear them, the more they work. * Wear them for six weeks after knee replacement surgery and four weeks after partial knee replacement. Prevention of Infection: * Take antibiotics one hour before any dental cleaning, dental work, urological procedure, gastrointestinal procedure or any invasive surgery in order to prevent your new joint from getting infected. * You may get the antibiotics from the doctor performing the procedure or you may call our office at before and we will call in a prescription to the pharmacy of your choice. Things to Watch For: * Drainage from the incision site that occurs more than one week after your surgery. * Severely increased knee/leg pain or swelling. * Increased redness at the incision site. * Fever above 102 degrees Fahrenheit. * Unusual chest pain or shortness of breath. * Unusual pain or burning with urination. Call [facility] at with any of the above problems or if you have any questions about your medicines or recovery. FOLLOW UP VISIT: Make an appointment to see your doctor for approximately two weeks after surgery for a progress check and staple removal by calling the office at . Current Hospital Diet Patient's current hospital diet: Regular Diet Discharge Diet Recommended Diet: Regular Diet Procedures Procedures Performed: Right Total Knee Arthroplasty Pending Studies Studies pending at discharge: no Medical Emergencies . Who to Call and When: Medical Emergencies: If at any time you feel your situation is an emergency, please call [phone] immediately. . Non-Emergent Contact Non-Emergency issues call your: Surgeon . "Provider Documentation" section prepared by Grey Robison. . VTE Core Measure Inpt VTE Proph given/why not?: Other Anticoagulation, T.E.D. Stockings, SCD's
[2017-07-13 23:00] VITALS: BP 104/58; PULSE 66; TEMP 36.8; O2SAT 93
[2017-07-14] MEDS: KETOROLAC TROMETHAMINE 30 MG/ML VIAL IV. SCH ×2 (01:44→07:11)
[2017-07-14 06:06] VITALS: BP 115/77; PULSE 64; TEMP 36.7; O2SAT 94
[2017-07-14] MEDS: GABAPENTIN 100 MG CAP PO SCH (06:06)
[2017-07-14] MEDS: PANTOprazole SOD 40 MG TAB PO SCH (07:48)
[2017-07-14] MEDS: MULTIVITAMIN TAB PO SCH (07:49)
[2017-07-14] MEDS: FLUOXETINE HCL 20 MG CAP PO SCH (07:49)
[2017-07-14] MEDS: DORZOLAMIDE/TIMOLOL 22.3/6.8MG/ML 10 ML BTL OPB SCH (07:51)
[2017-07-14] MEDS: TRAMADOL HCL 50 MG TAB PO PRN (08:05)
--- NOTE | 2017-07-14 08:09 | PROGRESS NOTE ---
DATE: 07/14/2017 SUBJECTIVE: A 67-year-old white female postop day 2 from right knee replacement. She is doing well. Pain is controlled. Denies any chest pain or shortness of breath. Not feeling dizzy or lightheaded. OBJECTIVE: VITAL SIGNS: Temperature is 36.7. Vital signs stable. GENERAL: Shows a pleasant, middle-aged elderly female. She is sitting up in bed and eating breakfast. She looks comfortable. No distress. EXTREMITIES: Examination of the right leg reveals the dressing to be clean, dry and intact. Leg is well aligned. Calf is soft and supple. She can dorsiflex and plantarflex her foot appropriately. She is neurologically intact. ASSESSMENT: A 67-year-old white female postop day 2 from a right knee replacement, doing pretty well. Pain is controlled. PLAN: 1. DVT prophylaxis including thigh-high TEDs, SCDs, and aspirin twice a day. 2. PT/OT. Weightbearing as tolerated. Right total knee protocol. 3. Pain control, doing well with current pain regimen. 4. Disposition: Plan to discharge to home with some home health after therapy today.
[2017-07-14] MEDS: DOCUSATE SODIUM 100 MG CAP PO SCH (09:00)
[2017-07-14] MEDS: FERROUS GLUCONATE 324 MG TAB PO SCH (09:07)
[2017-07-14] MEDS: DICYCLOMINE HCL 10 MG CAP PO SCH (09:07)
[2017-07-14] MEDS: ACETAMINOPHEN 500 MG TAB PO SCH (09:07)
[2017-07-14] MEDS: ASPIRIN 325 MG ECTAB PO SCH (09:08)
[2017-07-14 10:04] VITALS: BP 115/77; PULSE 64; TEMP 36.7; O2SAT 94
== END 2017-07-14 10:45 | disposition home health service (06) | DRG 470 ==
LOC: C.ACU 08:16 → C.3E 08:30 → ENRESERV 13:20
PROVIDERS: ADMIT Orthopaedic Surgery Sports Medicine; ATTEND Orthopaedic Surgery Sports Medicine
PROC: 0SRC0J9 Replacement of Right Knee Joint with Synthetic Substitute, Cemented, Open Approach (ICD-10-PCS; principal; 2017-07-12 10:55)
DX: M17.11 Unilateral primary osteoarthritis, right knee (principal); Z68.41 Body mass index [BMI] 40.0-44.9, adult; F41.9 Anxiety disorder, unspecified; F32.9 Major depressive disorder, single episode, unspecified; M79.7 Fibromyalgia; K21.9 Gastro-esophageal reflux disease without esophagitis; E66.9 Obesity, unspecified; Z79.899 Other long term (current) drug therapy; Z79.82 Long term (current) use of aspirin; Z80.1 Family history of malignant neoplasm of trachea, bronchus and lung